=== PATIENT | female | born 1935 | race Caucasian/White ===

== ENCOUNTER 2016-07-19 16:45 | Emergency (ER) | payer MEDICARE, BC ==
--- NOTE | 2016-07-19 17:06 | EDM.PDOC ---
<YeniAntony reyes Dayday - Last Filed: 07/19/16 19:43> ED HPI GENERAL MEDICAL PROBLEM - General Chief Complaint: Cardiovascular Problem Stated Complaint: LOW HEMOGLOBIN Time Seen by Provider: 07/19/16 16:53 Source of Information: Reports: Patient History Limitations: Reports: No limitations - History of Present Illness INITIAL COMMENTS - FREE TEXT/NARRATIVE: 81-year-old female seen at the [facility] this afternoon identified to have a drop in her hemoglobin to 7.7. Of note she has been taking hydroxyurea 500 mg twice daily for the last 2 months for a essential thrombocythemia. Initial platelet count was up to 751,000 on 07 June. Seen on 21 June her hemoglobin was 11.6 with hematocrit of 36.9 reticulocyte count was 477,000. White count was 5700. Today white cell count is 4.5 hemoglobin 7.7 with hematocrit of 25.8 MCV is 109.8 platelet count 507,000. Hydroxyurea was apparently stopped on 16 July. Patient reports her stools are always dark and black because of iron pill. He also cause constipation.overall she states she doesn't feel any more short of breath than normal. Her color is certainly quite pallid. She denies palpitations or chest pain. She denies any bone pain that's different than her normal arthritis pain. Recently stopped meloxicam and her cholesterol lowering agent at the request of her doctor. She clearly has no known coronary artery disease. Onset: today (identified low hemoglobin at 7.7 on today's appointment) Duration: Week(s): Location: Reports: generalized (generalized weakness and shortness of breath.) Quality: Reports: Other (she reports that she's not dizzy or lightheaded didn't perhaps only mildly more short of breath than normal. Chest Parkinson's disease her mobility is somewhat limited.) Severity: moderate (hemoglobin is 7.7 today.) Improves with: Reports: Rest Worsens with: Reports: Movement Context: Denies: Activity, Exercise, Lifting, Sick contact, Trauma Associated Symptoms: Reports: cough, cough w sputum (reportedly coughed up some blood a couple of times about 10 days ago. She did have an associated nosebleed around that time as well.), loss of appetite, malaise, shortness of breath, weakness (perhaps a little worse than normal). Denies: confusion, chest pain, diaphoresis (intermittent cough usually in the mornings.), fever/chills, headaches, nausea/vomiting, rash, seizure, syncope Treatments DISEASE EDUCATION SPECIALIST: Reports: Other (see below) (absolute worse than normal.) - Related Data Allergies Allergy/AdvReac Type Severity Reaction Status Date / Time Penicillins Allergy Rash Verified 07/19/16 16:59 tramadol Allergy Cannot Verified 07/19/16 16:59 Remember Home Meds: Home Meds Hydroxyurea [Hydrea] 500 mg PO BID 10/10/14 [History] LORazepam [Ativan] 0.5 mg PO TID PRN 10/10/14 [History] Pramipexole Di-HCl [Mirapex] 0.25 mg PO TID 10/10/14 [History] Sertraline HCl 100 mg PO DAILY 10/10/14 [History] Ferrous Sulfate [Iron] 325 mg PO DAILY #30 capsule.er 03/21/16 [Rx] Carbidopa/Levodopa [Carbidopa-Levodopa 25-250] 07/19/16 [History] Propranolol HCl [Propranolol] 10 mg PO TID 07/19/16 [History] oxyCODONE HCl/Acetaminophen [oxyCODONE-Acetaminophen 5-325] 1 - 2 tab PO Q4H PRN 07/19/16 [History] Past Medical History HEENT History: Reports: Impaired vision Other HEENT History: wears glasses, dentures Cardiovascular History: Reports: High cholesterol Gastrointestinal History: Reports: GERD Genitourinary History: Reports: Urinary incontinence Other Genitourinary History: wears a pad. Probs with incontinence Other Musculoskeletal History: Had right knee injected sep 21 2014 Neurological History: Reports: Other (see below) Other Neuro History: tremors Psychiatric History: Reports: Anxiety Other Hematologic History: Pt has high platelet count Oncologic (Cancer) History: Reports: Other (see below) (myeloproliferative disorder with essential thrombocythemia) - Past Surgical History Musculoskeletal Surgical History: Reports: Hip replacement (right), Knee replacement (bilateral) Other Musculoskeletal Surgeries/Procedures:: right total hip, left total knee Social & Family History - Family History Family Medical History: Noncontributory - Tobacco Use Smoking Status *Q: Never Smoker Second Hand Smoke Exposure: No - Caffeine Use Caffeine Use: Reports: None - Alcohol Use Days Per Week of Alcohol Use: 0 - Recreational Drug Use Recreational Drug Use: No Drug Use in Last 12 Months: No - Living Situation & Occupation Living situation: Reports: (her son attends the ED with her today.) Occupation: retired ED ROS GENERAL - Review of Systems Review Of Systems: See Below Constitutional: Reports: malaise, weakness (no worse than normal). Denies: fever, chills, fatigue ( I suspect she feels chronweak and fatigued due to her illness.) HEENT: Reports: Glasses Respiratory: Reports: shortness of breath, cough (perhaps a little bit worse than normal.), hemoptysis (usually in the mornings.did have some reported hemoptysis on 2 occasions about 10 days ago. This was associated bullae with a nosebleed.). Denies: wheezing, pleuritic chest pain Cardiovascular: Reports: Dyspnea on exertion, Lightheadedness. Denies: Chest pain, Blood pressure problem, Claudication, Edema (occasionally she gets up too fast), Orthopnea, Palpitations, PND, Syncope Endocrine: Reports: fatigue GI/Abdominal: Reports: Black stool, Constipation (on iron pill.) : Reports: frequency (urge and stress incontinence.), incontinence Musculoskeletal: Reports: shoulder pain (both her knees are much better since she had them replaced. Has some bilateral hip pain low back pain and neck pain at [place] can hurt at times as well.), back pain, joint pain Skin: Reports: pallor, bruising (bruises easily.) Psychiatric: Reports: Other (has some troubles with sleeping well and has had some depression in the past) Hematologic/Lymphatic: Reports: anemia (see history of present illness) ED EXAM, GENERAL - Physical Exam Exam: See Below Exam Limited By: No limitations General Appearance: alert, WD/WN, no apparent distress, other (quite pallid in appearance.) Eye Exam: bilateral eye: other (blepharal margins are quite pallid.) Throat/Mouth: Normal inspection, Normal lips, Normal oropharynx. No: Normal teeth Head: atraumatic, normocephalic Neck: normal inspection, supple, non-tender, full range of motion. No: lymphadenopathy (L), lymphadenopathy (R) Respiratory/Chest: lungs clear, decreased breath sounds (mildly decreased to both bases.), rales. No: rhonchi (possible few rales in the left base.), wheezing Cardiovascular: normal peripheral pulses, regular rate, rhythm, no edema, no gallop, no murmur, no rub Peripheral Pulses: 1+: posterior tibial (L), posterior tibial (R), dorsalis pedis (L), dorsalis pedis (R) GI/Abdominal: normal bowel sounds, soft, non tender, no organomegaly Back Exam: normal inspection, full range of motion. No: CVA tenderness (L), CVA tenderness (R) Extremities: no pedal edema, limited range of motion, other (both knees have been replaced. Scars appeared to be healing well.) Neurological: alert (marked limitation of range of motion of both hips were internal/external rotation.), oriented, CN II-XII intact, normal cognition, normal gait Psychiatric: normal affect, normal mood Skin Exam: Warm, Dry, Intact, Pallor (particular day in the creases of her hands. Tongue is normal in color.) Course - Vital Signs Last Recorded V/S: Last Vital Signs Temp 36.3 C 07/19/16 21:52 Pulse 90 07/19/16 21:52 Resp 18 07/19/16 21:52 BP 126/61 07/19/16 21:52 Pulse Ox 94 L 07/19/16 19:12 Orthostatic Blood Pressure [ 126/71 Standing] Orthostatic Blood Pressure [ 143/121 Sitting] Orthostatic Blood Pressure [ 138/54 Supine] - Orders/Labs/Meds Orders: Active Orders 24 hr Category Date Time Status Peripheral IV Care [RC] . DIRECTED Care 07/19/16 17:13 Active Chest 1V Frontal [CR] Stat Exams 07/19/16 17:40 Taken Sodium Chloride 0.9% [Saline Flush] Med 07/19/16 17:12 Active 10 ml FLUSH ASDIRECTED PRN Peripheral IV Insertion Adult [OM.PC] Stat Oth 07/19/16 17:12 Ordered Transfuse PRBC [Transfuse Red Blood Cells] [COMM] Oth 07/19/16 17:20 Ordered Routine Medication Orders Sodium Chloride (Saline Flush) 10 ml FLUSH ASDIRECTED PRN PRN Reason: Keep Vein Open Last Admin: 07/19/16 18:31 Dose: 10 ml Labs: Laboratory Tests 03/03/17 03/03/17 03/03/17 Range/Units 17:10 17:10 17:10 WBC 4.11 (3.98-10.04) K/mm3 RBC 2.43 L (3.98-5.22) M/mm3 Hgb 7.7 L (11.2-15.7) gm/L Hct 25.7 L (34.1-44.9) % MCV 105.8 H (79.4-94.8) fl MCH 31.7 (25.6-32.2) pg MCHC 30.0 L (32.2-35.5) g/dl RDW Std Deviation 62.2 H (36.4-46.3) fL Plt Count 306 (182-369) K/mm3 MPV 11.1 (9.4-12.3) fl Neutrophils % (Manual) 35 L (40-60) % Band Neutrophils % 0 (0-10) % Lymphocytes % (Manual) 36 (20-40) % Atypical Lymphs % 0 % Monocytes % (Manual) 29 H (2-10) % Eosinophils % (Manual) 0 L (0.7-5.8) % Basophils % (Manual) 0 L (0.1-1.2) Platelet Estimate Adequate Plt Morphology Comment Normal Poikilocytosis 3+ marked Anisocytosis 2+ moderate Microcytosis 2+ moderate Stomatocytes 1+ slight Helmet Cells 1+ slight RBC Morph Comment Not Reportable ESR 33 H (0-20) mm/hr Sodium (136-145) mEq/L Potassium (3.5-5.1) mEq/L Chloride (98-107) mEq/L Carbon Dioxide (21-32) mEq/L Anion Gap (5-15) BUN (7-18) mg/dL Creatinine (0.55-1.02) mg/dL Est Cr Clr Drug Dosing mL/min Estimated GFR (MDRD) (>60) mL/min BUN/Creatinine Ratio (14-18) Glucose (83-115) mg/dL Calcium (8.5-10.1) mg/dL Total Bilirubin (0.2-1.0) mg/dL AST (15-37) U/L ALT (14-59) U/L Alkaline Phosphatase (46-116) U/L Troponin I < 0.017 (0.00-0.056) ng/mL C-Reactive Protein (<1.0) mg/dL B-Natriuretic Peptide (0-100) pg/mL Total Protein (6.4-8.2) g/dl Albumin (3.4-5.0) g/dl Globulin gm/dL Albumin/Globulin Ratio (1-2) Blood Type Gel Antibody Screen Crossmatch 07/19/16 07/19/16 07/19/16 Range/Units 17:12 17:12 17:12 WBC (3.98-10.04) K/mm3 RBC (3.98-5.22) M/mm3 Hgb (11.2-15.7) gm/L Hct (34.1-44.9) % MCV (79.4-94.8) fl MCH (25.6-32.2) pg MCHC (32.2-35.5) g/dl RDW Std Deviation (36.4-46.3) fL Plt Count (182-369) K/mm3 MPV (9.4-12.3) fl Neutrophils % (Manual) (40-60) % Band Neutrophils % (0-10) % Lymphocytes % (Manual) (20-40) % Atypical Lymphs % % Monocytes % (Manual) (2-10) % Eosinophils % (Manual) (0.7-5.8) % Basophils % (Manual) (0.1-1.2) Platelet Estimate Plt Morphology Comment Poikilocytosis Anisocytosis Microcytosis Stomatocytes Helmet Cells RBC Morph Comment ESR (0-20) mm/hr Sodium 139 (136-145) mEq/L Potassium 4.2 (3.5-5.1) mEq/L Chloride 103 (98-107) mEq/L Carbon Dioxide 28 (21-32) mEq/L Anion Gap 12.2 (5-15) BUN 15 (7-18) mg/dL Creatinine 0.6 (0.55-1.02) mg/dL Est Cr Clr Drug Dosing 68.90 mL/min Estimated GFR (MDRD) > 60 (>60) mL/min BUN/Creatinine Ratio 25.0 H (14-18) Glucose 98 (83-115) mg/dL Calcium 8.6 (8.5-10.1) mg/dL Total Bilirubin 0.2 (0.2-1.0) mg/dL AST 12 L (15-37) U/L ALT 8 L (14-59) U/L Alkaline Phosphatase 89 (46-116) U/L Troponin I (0.00-0.056) ng/mL C-Reactive Protein 0.3 (<1.0) mg/dL B-Natriuretic Peptide 135 H (0-100) pg/mL Total Protein 7.0 (6.4-8.2) g/dl Albumin 3.8 (3.4-5.0) g/dl Globulin 3.2 gm/dL Albumin/Globulin Ratio 1.2 (1-2) Blood Type O POSITIVE Gel Antibody Screen Negative Crossmatch See Detail Meds: Medications Generic Name Dose Route Start Last Admin Trade Name Freq PRN Reason Stop Dose Admin Sodium Chloride 10 ml 07/19/16 17:12 07/19/16 18:31 Saline Flush FLUSH 10 ml ASDIRECTED PRN Administration Keep Vein Open Discontinued Medications Generic Name Dose Route Start Last Admin Trade Name Freq PRN Reason Stop Dose Admin Carbidopa/Levodopa 0.25 tab 07/19/16 20:32 07/19/16 20:53 Sinemet 25-250 Mg PO 07/19/16 20:33 Not Given ONETIME ONE Carbidopa/Levodopa 1 tab 07/19/16 20:43 07/19/16 20:44 Sinemet 10-100 Mg PO 07/19/16 20:44 1 tab ONETIME ONE Administration Furosemide 20 mg 07/19/16 19:42 07/19/16 20:45 Lasix IVPUSH 07/19/16 19:43 20 mg ONETIME ONE Administration Furosemide Confirm 07/19/16 20:21 07/19/16 20:45 Lasix Administered 07/19/16 20:22 Not Given Dose 40 mg .ROUTE .STK-MED ONE Sodium Chloride Confirm 07/19/16 18:19 07/19/16 18:31 Normal Saline Administered 07/19/16 18:20 250 ml Dose Administration 250 mls @ as directed .ROUTE .STK-MED ONE Lorazepam 0.5 mg 07/19/16 20:15 07/19/16 20:21 Ativan PO 07/19/16 20:16 0.5 mg ONETIME ONE Administration - Radiology Interpretation Free Text/Narrative:: 81-year-old female sent to the ED from the [facility] where she seen oncology today. Patient has a history of essential thrombocythemia with a total platelet count of around 751,000 on 07 June 2014.. She therefore started on a six-week course of 500 mg twice a day dose of Axid urea. She poorly tolerated thithe records are unclear but it appears that the hydroxyurea was stopped on 16 July this year. Therefore she's been taking hydroxyurea on intermittent basis over the last 2 years since diagnosis of essential thrombocythemia. Unfortunately today her hemoglobin is identified to be low at 7.7 with hematocrit of 25.8. White count was 4.5 absolute neutrophil count was 1.8. Platelet count today is 507,000.she was therefore sent across to the ED for evaluation and one transfusion. Of note the patient has chronic Parkinson's disorder. She takes quarter tablet of levodopa, dopa not sure of the dosage. 3 times daily which controls her tremor and keep her mobile. Plan routine labs including chemistry to be done. She'll be crossmatched for 2 units of packed cells with a view to transfusing each over 2 hours. View of her chest will be done as well as an ECG and a BNP to see if she will require Lasix in between units. On exam she does have a few rales in the left lung base. - Re-Assessments/Exams Free Text/Narrative Re-Assessment/Exam: 07/19/16 18:24 lab work is back. White count is 4.11 with 35% neutrophils no bands and 36% lymphocytes. Hemoglobin is 7.7. Hematocrit is 25.7 platelets 306,000. MCV be is elevated at 105.8. Sedimentation rate is 33 BNP is 135. Chest x-rays not yet done. Vision is had supper. Blood is not yet available. 07/19/16 19:35 she is about shelter through her first unit of blood. 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 Cardiac silhouette reveals mild cardiomegaly. There is increased central vasculature at the right hilum. No evidence of failure. BNP came back at 135 and if I will give her 20 eat the milligrams of Lasix in between units of blood. Tentatively she'll be discharged home after the second unit of blood has been infused. She will be instructed to followup in the clinic on Friday next week for repeat hematology workup. 07/19/16 19:43case discussed with Dr. Corbin as it is now change of shift. He is aware that she is receiving a blood transfusion and to be aware of potential does usually reactions. Discharge has otherwise been written if there are no further problems she will be discharged after completion of second unit of packed cell transfusion. Departure - Departure Disposition: Home, Self-Care 01 Condition: fair Clinical Impression: Anemia Qualifiers: Anemia type: other cause Instructions: Anemia, Nonspecific Referrals: Soni Guerra [employer] [Primary Care Provider] - Forms: ED Department Discharge Additional Instructions: Evaluation in the emergency room tonight in regards development of low blood count. Identified lynette anemic with a hemoglobin of 7.7 during routine labs done today by her oncologist. Labs done here in the ED confirmed a hemoglobin of 7.7 with hematocrit of 25.7. Normal hemoglobin should be around 13.5-15. Platelet count is down to 306,000 which is a marked improvement of compared to 751,000 that was diagnosed 2 years ago. Platelet count of around 300,000 is normal. He therefore received 2 units of packed red blood cells in the hope of getting her hemoglobin up to around 10. This still leaves you a little short but your body will probably make new red cells over the next 2-3 weeks to bring her blood up further since the hydroxyurea urea medication that you're taking to suppression of bone marrow was stopped on 16 July. Suggest followup with her personal care physician for blood work on Friday next week to make sure that the hemoglobin is stable and that you are not losing blood through the GI tract unknowingly.continue all normal medications at this time including your iron tablet. <Ross Rudd - Last Filed: 07/19/16 22:51> Course - Re-Assessments/Exams Free Text/Narrative Re-Assessment/Exam: 07/19/16 20:25 patient receiving transfusions not having a lot of problems at this point except her anxiety is starting to act up she generally uses Ativan 0.5 mg by mouth 4 times a day we will give her a dose at this time. she is also due for a dose of levodopa this will be given as well. Departure - Departure Time of Disposition: 22:50
[2016-07-19] MEDS ORDERED: Sodium Chloride 0.9% 10 ML Syringe FLUSH PRN (17:12)
[2016-07-19] MEDS ORDERED: Sodium Chloride 0.9% 250 ML ONE (18:19)
[2016-07-19] MEDS ORDERED: Furosemide 20 MG/2 ML VIAL IVPUSH ONE (19:42)
[2016-07-19] MEDS ORDERED: LORazepam 0.5 MG Tab PO ONE (20:15)
[2016-07-19] MEDS ORDERED: Furosemide 40 MG/4 ML VIAL ONE (20:21)
[2016-07-19] MEDS ORDERED: Carbidopa/Levodopa 25-250 MG Tab PO ONE (20:32)
[2016-07-19] MEDS ORDERED: Carbidopa/Levodopa 10-100 MG Tab PO ONE (20:43)
[2016-07-19 21:53] VITALS: BP 126/61
--- NOTE | 2016-07-22 07:37 | CR ---
Chest: Portable view of the chest was obtained. Comparison: Previous chest x-ray of 03/19/16. Heart size is mildly enlarged. Tortuous thoracic aorta is seen. 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 Lungs are clear with no acute infiltrates. Slight linear scarring noted within the left lung base. Degenerative change is noted within the left shoulder. Mild scoliosis present within the spine with scattered degenerative change. Impression: 1. Multiple findings. Nothing acute is identified on portable chest x-ray. Diagnostic code #2
== END 2016-07-19 22:49 | disposition home or self-care (01) ==
LOC: JD.ED 16:45
DX: D64.9 Anemia, unspecified (principal); E78.00 Pure hypercholesterolemia, unspecified; K21.9 Gastro-esophageal reflux disease without esophagitis; F41.9 Anxiety disorder, unspecified; Z96.641 Presence of right artificial hip joint; Z96.653 Presence of artificial knee joint, bilateral; Z88.0 Allergy status to penicillin; Z88.5 Allergy status to narcotic agent; Z79.899 Other long term (current) drug therapy
CPT/HCPCS: 36415; 36430; 71010; 80053; 83880; 84484; 85025; 85652; 86140; 86850; 86900; 86901; 86922; 96374; 99284; A9270; J7050; P9016

== ENCOUNTER 2016-09-04 12:33 | Emergency (ER) | payer MEDICARE, OTHER, BC ==
--- NOTE | 2016-09-04 12:49 | EDM.PDOC ---
ED HPI GENERAL MEDICAL PROBLEM - General Stated Complaint: SENT FROM RADIOLOGY Time Seen by Provider: 09/04/16 12:49 Source of Information: Reports: Patient, Other (previous E.D. evaluation) History Limitations: Reports: No limitations - History of Present Illness INITIAL COMMENTS - FREE TEXT/NARRATIVE: Patient is a 81 y/o female who presents to the E.D. after being evaluated in the clinic today with hgb of 6.6. She was sent to the E.D. to further evaluate etiology of potential bleeding and arrange transport to [facility] for further evaluation and treatment. Patient has history of myeloproliferative disorder with essential thrombocythemia. Patient was started on a 6 week course of hydroxyurea May 2014. Patient did not tolerate this therapy and this was discontinued approximately one month later. She has received hydroxyurea on intermittent basis over the past 2 years with diagnosis of essential thrombocythemia. Unfortunately she has been battling low hemoglobin with this treatment. She was evaluated in July 19, 2016 for elevated platelet count and also hemoglobin 7.7. She received 2 units of blood while in the ED and discharged home with instructions to followup with PCP. She did see PCP as instructed with lab work revealed HGB had increased to 10.8 with platelet count of 199k. She was seen by Marleny Morrow PA-C today. Repeat blood work revealed a hemoglobin of 6.6 with platelet count of 1283. Patient had been experiencing black stool but notes she takes iron supplementation and states is unchanged. For the past three days has had hemoptysis in the evening. States she has had tony red blood with few clots. States usually after coughing up the blood it subsides with no further issues during the evening and day. States she is mildly short of breath with exertion which is unchanged. Experiences intermittent dizziness with changing body positions that last only for a short period of time. States she is able to ambulate utilizing a walker with no issues. Patient does live independently. Patient denies CP, PND, orthopnea, increased pedal edema, n/v, dysuria, or any additional complaints. Patient is seeing Dr. Campbell, Internal Medicine/Oncology [facility] [place], [place]. Associated Symptoms: Reports: cough w sputum (blood present), fever/chills ( intermittent episodes of feeling warm while on her feet cooking. ), shortness of breath (intermittent, worsened with exertion. no new changes. ). 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: Other (see below) (none stated) - Related Data Allergies Allergy/AdvReac Type Severity Reaction Status Date / Time Penicillins Allergy Rash Verified 07/19/16 16:59 tramadol Allergy Cannot Verified 07/19/16 16:59 Remember Home Meds: Home Meds LORazepam [Ativan] 0.5 mg PO TID PRN 10/10/14 [History] Pramipexole Di-HCl [Mirapex] 1 mg PO TID 10/10/14 [History] Sertraline HCl 100 mg PO DAILY 10/10/14 [History] Ferrous Sulfate [Iron] 325 mg PO DAILY #30 capsule.er 03/21/16 [Rx] Carbidopa/Levodopa [Carbidopa-Levodopa 25-250] 25 - 250 mg PO QID 07/19/16 [ History] Propranolol HCl [Propranolol] 10 mg PO TID 07/19/16 [History] oxyCODONE HCl/Acetaminophen [oxyCODONE-Acetaminophen 5-325] 5 - 325 mg PO Q4H PRN 07/19/16 [History] Docusate Sodium 100 mg PO BID PRN 09/04/16 [History] Past Medical History HEENT History: Reports: Impaired vision Other HEENT History: wears glasses, dentures Cardiovascular History: Reports: High cholesterol Gastrointestinal History: Reports: GERD Genitourinary History: Reports: Urinary incontinence Other Genitourinary History: wears a pad. Probs with incontinence Other Musculoskeletal History: Had right knee injected sep 21 2014 Neurological History: Reports: Other (see below) Other Neuro History: tremors Psychiatric History: Reports: Anxiety Other Hematologic History: Pt has high platelet count Oncologic (Cancer) History: Reports: Other (see below) (myeloproliferative disorder with essential thrombocythemia) - Past Surgical History Musculoskeletal Surgical History: Reports: Hip replacement (right), Knee replacement (bilateral) Other Musculoskeletal Surgeries/Procedures:: right total hip, left total knee Social & Family History - Family History Family Medical History: Noncontributory - Tobacco Use Smoking Status *Q: Never Smoker Second Hand Smoke Exposure: No - Caffeine Use Caffeine Use: Reports: None - Alcohol Use Days Per Week of Alcohol Use: 0 - Recreational Drug Use Recreational Drug Use: No Drug Use in Last 12 Months: No - Living Situation & Occupation Living situation: Reports: (her son attends the ED with her today.) Occupation: retired ED ROS GENERAL - Review of Systems Review Of Systems: See Below Constitutional: Reports: malaise, fatigue. Denies: fever, chills, decreased appetite HEENT: Reports: No symptoms Respiratory: Reports: Shortness of Breath (With exertion), Hemoptysis (At night) . Denies: Wheezing, Pleuritic Chest Pain Cardiovascular: Reports: Dyspnea on exertion, Edema (Right ankle, mild, post knee replacement March 2017). Denies: Chest pain, Lightheadedness, Orthopnea , Palpitations, PND, Syncope GI/Abdominal: Reports: Black stool (On iron supplementation). Denies: Abdominal pain, Constipation, Diarrhea, Decreased appetite, Distension, Hematemesis, Nausea, Vomiting : Reports: no symptoms Musculoskeletal: Reports: no symptoms Skin: Reports: no symptoms Neurological: Reports: Dizziness (Intermittent dizziness when changing body positions from seated to standing. Resolves after a few seconds.), Gait Disturbance (Utilize a walker). Denies: Difficulty Walking Hematologic/Lymphatic: Reports: anemia (History of) ED EXAM, GENERAL - Physical Exam Exam: See Below Exam Limited By: No limitations General Appearance: alert, WD/WN, no apparent distress Eye Exam: bilateral eye: PERRL, other (Pail Conjunctiva) Ears: hearing loss Nose: normal mucosa, no blood Throat/Mouth: Other (oral mucosa is moist with dried blood to tongue. No bleeding from the nose appreciated. No bleeding noted to the posterior pharnyx. ) Head: atraumatic, normocephalic Neck: normal inspection, supple, non-tender Respiratory/Chest: no respiratory distress, lungs clear, normal breath sounds, no accessory muscle use, chest non-tender Cardiovascular: normal peripheral pulses, regular rate, rhythm, systolic murmur Peripheral Pulses: 2+: radial (R) GI/Abdominal: normal bowel sounds, soft, non tender, no organomegaly, no distention (Female) Exam: Deferred Rectal (Female) Exam: Normal Exam, Normal rectal tone, Black stool, Heme + stool. No: Hemorrhoids, Mass, Tenderness Extremities: normal inspection, non-tender, no pedal edema Neurological: alert, oriented, CN II-XII intact, normal cognition, no motor/ sensory deficits Psychiatric: normal affect, normal mood Skin Exam: Warm, Dry, Intact, Other (pale) Course - Vital Signs Last Recorded V/S: Last Vital Signs Temp 97.1 F 09/04/16 17:51 Pulse 80 09/04/16 17:51 Resp 18 09/04/16 17:51 BP 109/91 H 09/04/16 17:51 Pulse Ox 97 09/04/16 17:51 - Orders/Labs/Meds Orders: Active Orders 24 hr Category Date Time Status EKG Documentation Completion [RC] STAT Care 09/04/16 13:40 Active Verify Patient Consent Obtain [RC] ASDIRECTED Care 09/04/16 13:28 Active RED BLOOD CELLS LP [BBK] Stat Lab 09/04/16 13:54 Results TYPE AND SCREEN [BBK] Stat Lab 09/04/16 13:54 Results Blood Transfusion Reflex Orders [OM.PC] Routine Oth 09/04/16 13:25 Ordered Peripheral IV Insertion Adult [OM.PC] Urgent Oth 09/04/16 13:25 Ordered Transfuse Red Blood Cells [COMM] Stat Oth 09/04/16 13:25 Ordered Labs: Laboratory Tests 09/04/16 09/04/16 Range/Units 13:54 13:54 PT 11.3 (8.0-13.0) SECONDS INR 1.03 APTT 25 (22-36) SECONDS Blood Type O POSITIVE Gel Antibody Screen Negative Crossmatch See Detail Meds: Medications Discontinued Medications Generic Name Dose Route Start Last Admin Trade Name Freq PRN Reason Stop Dose Admin Carbidopa/Levodopa 0.25 tab 09/04/16 13:37 Sinemet 25-250 Mg PO 09/04/16 13:38 ONETIME ONE Carbidopa/Levodopa 0.5 tab 09/04/16 14:01 09/04/16 14:05 Sinemet 10-100 Mg PO 09/04/16 14:02 0.5 tab ONETIME ONE Administration Furosemide 40 mg 09/04/16 13:25 09/04/16 17:17 Lasix IVPUSH 09/04/16 13:26 40 mg NOW ONE Administration Hydromorphone HCl 0.5 mg 09/04/16 15:25 09/04/16 15:53 Dilaudid IVPUSH 09/04/16 15:26 0.5 mg ONETIME ONE Administration Sodium Chloride 1,000 mls @ 125 mls/hr 09/04/16 13:30 09/04/16 13:52 Normal Saline IV 125 mls/hr ASDIRECTED SEPIDEH Administration Sodium Chloride 1,000 mls @ 50 mls/hr 09/04/16 16:30 Normal Saline IV ASDIRECTED SEPIDEH Lorazepam 0.5 mg 09/04/16 13:37 09/04/16 13:52 Ativan PO 09/04/16 13:38 0.5 mg ONETIME ONE Administration Sodium Chloride 10 ml 09/04/16 13:25 09/04/16 14:06 Saline Flush FLUSH 10 ml ASDIRECTED PRN Administration Keep Vein Open - Re-Assessments/Exams Free Text/Narrative Re-Assessment/Exam: Hemoccult was positive. Discussed with patient if she would like to have an EEG to your colonoscopy obtained. Patient states yes she would like to know where the bleeding is coming from and have it dealt with. White blood cell count 14.20, hemoglobin 6.6, hematocrit 21.6%, MCV is 100.0, platelets 283, visual percentage 59 lymphocytes 14.6, monocyte percentage 80.3, neutrophil #8.36. Sodium 139, potassium 4.0, CO2 25, anion gap is 13, BUN 14, creatinine 0.7, glucose 141. Chest x-ray reviewed with Dr. Jones with no acute abnormalities noted. EKG: Sinus rhythm at a rate 83 with normal P axis, [place] interval 206, QTC is 455, no acute ST changes noted. Ordered type and cross with transfusion of 2 units of rbc's. 40 mg of Lasix in between the units. Patient requesting carbidopa/levodopa 25-250 mg were tablet right now and also lorazepam 0.5 mg one tablet right now for increased anxiety. Notified by pharmacy they do not have this dose with in the hospital system. I have ordered 0.5 tablet of 10-100. 09/04/16 14:[address] Sage Sue. She has accepted the patient. Recommends transfusing one unit of blood here in the E.D. prior to transport. Nursing staff has contacted lab and notified them with the changes to units of blood needed. 09/04/16 16:35 Half of the the unit of blood is seen at this time. Contacted ambulance service for transport. [facility] will be available in one half hour. All transfer paperwork has been completed. Decreased IV rate to 50mls/hr. Patient did complain of moderate arthritic pain and requested pain medications. Dilaudid 0.5mg IVP ordered. Departure - Departure Time of Disposition: 15:35 Disposition: DC/Tfer to [facility] 02 Condition: fair Clinical Impression: Cough with hemoptysis Anemia Qualifiers: Anemia type: unspecified type Qualified Code(s): D64.9 - Anemia, unspecified GI bleed Qualifiers: GI bleed type/associated pathology: unspecified gastrointestinal hemorrhage type Qualified Code(s): K92.2 - Gastrointestinal hemorrhage, unspecified Referrals: Soni Guerra SCIENCE WRITER [Primary Care Provider] - Forms: ED Department Discharge - My Orders Last 24 Hours: My Active Orders 09/04/16 13:25 Blood Transfusion Reflex Orders [OM.PC] Routine Peripheral IV Insertion Adult [OM.PC] Urgent Transfuse Red Blood Cells [COMM] Stat 09/04/16 13:28 Verify Patient Consent Obtain [RC] ASDIRECTED 09/04/16 13:40 EKG Documentation Completion [RC] STAT 09/04/16 13:54 RED BLOOD CELLS LP [BBK] Stat TYPE AND SCREEN [BBK] Stat - Assessment/Plan Last 24 Hours: My Active Orders 09/04/16 13:25 Blood Transfusion Reflex Orders [OM.PC] Routine Peripheral IV Insertion Adult [OM.PC] Urgent Transfuse Red Blood Cells [COMM] Stat 09/04/16 13:28 Verify Patient Consent Obtain [RC] ASDIRECTED 09/04/16 13:40 EKG Documentation Completion [RC] STAT 09/04/16 13:54 RED BLOOD CELLS LP [BBK] Stat TYPE AND SCREEN [BBK] Stat
[2016-09-04] MEDS ORDERED: Furosemide 40 MG/4 ML VIAL IVPUSH ONE (13:25)
[2016-09-04] MEDS ORDERED: Sodium Chloride 0.9% 10 ML Syringe FLUSH PRN (13:25)
[2016-09-04] MEDS ORDERED: Sodium Chloride 0.9% 1,000 ML IV SCH ×2 (13:30→16:30)
[2016-09-04] MEDS ORDERED: LORazepam 0.5 MG Tab PO ONE (13:37)
[2016-09-04] MEDS ORDERED: Carbidopa/Levodopa 25-250 MG Tab PO ONE (13:37)
[2016-09-04] MEDS ORDERED: Carbidopa/Levodopa 10-100 MG Tab PO ONE (14:01)
[2016-09-04] MEDS ORDERED: HYDROmorphone 0.5 MG/0.5 ML Syringe IVPUSH ONE (15:25)
[2016-09-04 17:20] VITALS: BP 109/91
== END 2016-09-04 17:15 ==
LOC: JD.ED 12:33
DX: K92.2 Gastrointestinal hemorrhage, unspecified (principal); R04.2 Hemoptysis; E78.00 Pure hypercholesterolemia, unspecified; K21.9 Gastro-esophageal reflux disease without esophagitis; F41.9 Anxiety disorder, unspecified; Z88.0 Allergy status to penicillin; Z88.5 Allergy status to narcotic agent; Z79.899 Other long term (current) drug therapy; D64.9 Anemia, unspecified
CPT/HCPCS: 36415; 36430; 71020; 80053; 85025; 85610; 85730; 86850; 86900; 86901; 86922; 93005; 96361; 96374; 96375; 99214; 99285; A9270; J1170; J1940; J7040; J7050; P9016

== ENCOUNTER 2016-09-13 03:34 | Emergency (ER) | payer MEDICARE, OTHER, BC ==
[2016-09-13] MEDS ORDERED: EPINEPHrine 1:10,000 1 MG/10 ML Syringe ONE ×2 (04:03→04:04)
[2016-09-13] MEDS ORDERED: Lactated Ringers 1,000 ML IV ONE (04:04)
[2016-09-13] MEDS ORDERED: Sodium Bicarbonate 8.4% 50 MEQ/50 ML Syringe ONE (04:04)
[2016-09-13] MEDS ORDERED: Atropine 0.1 MG/ML 10 ML Syringe ONE (04:04)
--- NOTE | 2016-09-13 04:59 | EDM.PDOC ---
ED HPI CPR - General Chief Complaint: CPR in Progress Stated Complaint: [facility] Time Seen by Provider: 09/13/16 03:34 - History of Present Illness INITIAL COMMENTS - FREE TEXT/NARRATIVE: 81-year-old female presents to the emergency room by EMS with full cardiopulmonary resuscitation in progress. The patient was found down shortly before 3 AM she was unresponsive. By history from EMS the law office assistant over at the [facility] responded to a lesser from the patient's room. It took her approximately 10 minutes to get to the room she found the patient unresponsive and called EMS. When the paramedics arrived the patient was unresponsive did not have a pulse and was not breathing. CPR was begun advanced cardiac life support medications given the patient had a Socrates airway placed. Upon arrival here she had 3 rounds of epinephrine and an amp of bicarbonate given. She arrived to emergency room after nearly 30 minutes of attempted resuscitation. We took over the resuscitative effort. Initial exam showed Socrates airway in place, good breath sounds noted bilaterally. Good quality CPR was achieved with the L[place]as device ventilation provided at an appropriate rate by respiratory therapy. On further exam the patient was found to have pupils were fixed and dilated. The patient received multiple cycles of epinephrine. Her breath sounds were confirmed on several occasions. Be related to terminate efforts however the patient developed a cardiac rhythm at about 110-120 beats per minute the patient was given fluids more epinephrine and another amp of bicarbonate. During this process the patient's son did arrive. He does not have power of director gift his sister does. She was not readily available at that time. Resuscitative efforts were continued while working with the presumed PEA. After one hour of resuscitative efforts rhythm was checked again she was found to be in asystole with an occasional agonal beat resuscitative efforts were terminated. Shortly after terminate efforts I discussed the situation with the patient's son and the patient's daughter over the phone. - Related Data Allergies/ADRs: Allergies Allergy/AdvReac Type Severity Reaction Status Date / Time Penicillins Allergy Rash Verified 07/19/16 16:59 tramadol Allergy Cannot Verified 07/19/16 16:59 Remember Home Meds: Home Meds LORazepam [Ativan] 0.5 mg PO TID PRN 10/10/14 [History] Pramipexole Di-HCl [Mirapex] 1 mg PO TID 10/10/14 [History] Sertraline HCl 100 mg PO DAILY 10/10/14 [History] Ferrous Sulfate [Iron] 325 mg PO DAILY #30 capsule.er 03/21/16 [Rx] Carbidopa/Levodopa [Carbidopa-Levodopa 25-250] 25 - 250 mg PO QID 07/19/16 [ History] Propranolol HCl [Propranolol] 10 mg PO TID 07/19/16 [History] oxyCODONE HCl/Acetaminophen [oxyCODONE-Acetaminophen 5-325] 5 - 325 mg PO Q4H PRN 07/19/16 [History] Docusate Sodium 100 mg PO BID PRN 09/04/16 [History] Past Medical History HEENT History: Reports: Impaired vision Other HEENT History: wears glasses, dentures Cardiovascular History: Reports: High cholesterol Gastrointestinal History: Reports: GERD Genitourinary History: Reports: Urinary incontinence Other Genitourinary History: wears a pad. Probs with incontinence Other Musculoskeletal History: Had right knee injected sep 21 2014 Neurological History: Reports: Other (see below) Other Neuro History: tremors Psychiatric History: Reports: Anxiety Other Hematologic History: Pt has high platelet count Oncologic (Cancer) History: Reports: Other (see below) (myeloproliferative disorder with essential thrombocythemia) - Past Surgical History Musculoskeletal Surgical History: Reports: Hip replacement (right), Knee replacement (bilateral) Other Musculoskeletal Surgeries/Procedures:: right total hip, left total knee Social & Family History - Family History Family Medical History: Noncontributory - Tobacco Use Smoking Status *Q: Never Smoker Second Hand Smoke Exposure: No - Caffeine Use Caffeine Use: Reports: None - Alcohol Use Days Per Week of Alcohol Use: 0 - Recreational Drug Use Recreational Drug Use: No Drug Use in Last 12 Months: No - Living Situation & Occupation Living situation: Reports: (her son attends the ED with her today.) Occupation: retired ED ROS GENERAL - Review of Systems Review Of Systems: Unable To Obtain ED EXAM, CPR - Physical Exam Exam: See Below Limited By: other (CPR in progress) General Appearance: other (Cyanotic unresponsive) Head: atraumatic, normocephalic Respiratory Chest: other (Periodic respiratory exam revealed bilateral breath sounds) Cardiovascular: cpr in progress GI/Abdominal Exam (Abbreviated): other (No bowel sounds abdomen distended) Course - Orders/Labs/Meds Meds: Medications Discontinued Medications Generic Name Dose Route Start Last Admin Trade Name Freq PRN Reason Stop Dose Admin Epinephrine HCl Confirm 09/13/16 04:03 Epinephrine 1:10,000 Administered 09/13/16 04:04 Dose 2 mg .ROUTE .STK-MED ONE Departure - Departure Time of Disposition: 04:05 Disposition: 20 Clinical Impression: Cardiac arrest, Respiratory arrest Forms: ED Department Discharge
== END 2016-09-13 07:34 | disposition expired ==
LOC: JD.ED 03:34
DX: I46.9 Cardiac arrest, cause unspecified (principal); R09.2 Respiratory arrest; E78.00 Pure hypercholesterolemia, unspecified; K21.9 Gastro-esophageal reflux disease without esophagitis; F41.9 Anxiety disorder, unspecified; Z88.0 Allergy status to penicillin; Z79.899 Other long term (current) drug therapy; Z88.5 Allergy status to narcotic agent; Z98.890 Other specified postprocedural states
CPT/HCPCS: 92950; 96374; 96375; 96376; 99285; J0171; J0461; J7120; 99283